=== PATIENT | male | born 1955 | race Caucasian/White ===

== ENCOUNTER → 2018-02-19 10:42 | Outpatient (POV) | payer MEDICARE, SELFPAY ==
[2018-02-19 11:03] VITALS: BP 200/93; PULSE 80; RESP 18; O2SAT 98
--- NOTE | 2018-02-19 13:18 | HMH.PMCON ---
Assessment and Plan (1) Degenerative joint disease (DJD) of lumbar spine Current visit: Yes Status: Chronic Qualifiers: Spinal osteoarthritis complication: with radiculopathy Qualified Code(s): M47.26 - Other spondylosis with radiculopathy, lumbar region Category: Medical Code(s): M47.816 - Spondylosis without myelopathy or radiculopathy, lumbar region - Assessment and plan all Dx Assessment and Plan for all problems:: Patient is not a narcotic candidate given his ORT score along with his history of prescription abuse. Patient and I discussed injection therapy we will start with lumbar epidural steroid injection at L4-L5. We then discussed utilizing injections to help with his neck pain. I will follow-up with the patient 2 weeks after his injection we will reassess his symptoms at that time. This note was dictated using voice recognition software and may contain errors or omissions HPI - Data of Consult Consult date: 02/19/18 Requesting Physician: Jenny Rios APRN Primary Care Provider: Julian Martinez - Consult Narrative Reason for consult: Back pain History of present illness: Mr. Ignacio is a 62 year old male who presents today for consultation in regards to his back pain. He rates his pain today a 6 out of 10. Patient states that he is mainly neck and low back pain going into his legs. He states all activity increases the pain while rest decreases his pain. Patient states he has numbness and tingling in all extremities. Patient's tried physical therapy with minimal relief. Patient does have an MRI showing some pathology. Patient has been on narcotics in the past and had difficulty getting off of them. He was also on methadone at some point. Patient's MRI shows degeneration in both cervical and the lumbar spine CC: Jenny Rios APRN [facility] History I have reviewed the patient's past medical history: Yes Medical History: Reports:: Diabetes Mellitus Type 2, Hypertension - *Social History Smoking Status: Never smoker Alcohol Intake: never Occupational Status: other Housing: house Household Members: spouse - Psychiatric History Expresses thoughts of harming self/others: None Suicide Plan Description: No Plan *Family Hx:: Unable to obtain Review of Systems - Review of Systems ROS General: no recent weight change, no fever, no sleep disturbances Respiratory: no cough, no shortness of air, no recurring pulmonary infections Cardiovascular/Peripheral Vascular: No chest pain, No palpitations, no edema, no shortness of breath. Gastrointestinal: no incontinence, normal bowel movements reported Genitourinary: no incontinence Musculoskeletal: Back pain, leg pain Psychiatric: normal mood/ affect, Neurological: [denies weakness in extremities], [denies balance issues] Objective Vital signs: Pulse Resp BP Pulse Ox 80 18 200/93 H 98 02/19/18 11:03 02/19/18 11:03 02/19/18 11:03 02/19/18 11:03 Narrative: Physical Exam General: Alert and oriented x3, no acute distress, pleasant and cooperative, on oxygen Lungs: Resps E/U, Symmetrical chest expansion, Eyes: PERRL Musculoskeletal: Flexion and extension of lumbar spine somewhat guarded secondary to pain, deep tendon reflexes normal, strength in upper and lower extremities [5/5], [abnormal gait noted] Neurological: speech clear, 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
--- NOTE | 2018-02-19 13:27 | P.CONS_ITS ---
Assessment and Plan (1) Degenerative joint disease (DJD) of lumbar spine Current visit: Yes Status: Chronic Qualifiers: Spinal osteoarthritis complication: with radiculopathy Qualified Code(s): M47.26 - Other spondylosis with radiculopathy, lumbar region Category: Medical Code(s): M47.816 - Spondylosis without myelopathy or radiculopathy, lumbar region - Assessment and plan all Dx Assessment and Plan for all problems:: Patient is not a narcotic candidate given his ORT score along with his history of prescription abuse. Patient and I discussed injection therapy we will start with lumbar epidural steroid injection at L4-L5. We then discussed utilizing injections to help with his neck pain. I will follow-up with the patient 2 weeks after his injection we will reassess his symptoms at that time. This note was dictated using voice recognition software and may contain errors or omissions HPI - Data of Consult Consult date: 02/19/18 Requesting Physician: Jenny Rios APRN Primary Care Provider: Julian Martinez - Consult Narrative Reason for consult: Back pain History of present illness: Mr. Ignacio is a 62 year old male who presents today for consultation in regards to his back pain. He rates his pain today a 6 out of 10. Patient states that he is mainly neck and low back pain going into his legs. He states all activity increases the pain while rest decreases his pain. Patient states he has numbness and tingling in all extremities. Patient's tried physical therapy with minimal relief. Patient does have an MRI showing some pathology. Patient has been on narcotics in the past and had difficulty getting off of them. He was also on methadone at some point. Patient's MRI shows degeneration in both cervical and the lumbar spine CC: Jenny Rios APRN [facility] History I have reviewed the patient's past medical history: Yes Medical History: Reports:: Diabetes Mellitus Type 2, Hypertension - *Social History Smoking Status: Never smoker Alcohol Intake: never Occupational Status: other Housing: house Household Members: spouse - Psychiatric History Expresses thoughts of harming self/others: None Suicide Plan Description: No Plan *Family Hx:: Unable to obtain Review of Systems - Review of Systems ROS General: no recent weight change, no fever, no sleep disturbances Respiratory: no cough, no shortness of air, no recurring pulmonary infections Cardiovascular/Peripheral Vascular: No chest pain, No palpitations, no edema, no shortness of breath. Gastrointestinal: no incontinence, normal bowel movements reported Genitourinary: no incontinence Musculoskeletal: Back pain, leg pain Psychiatric: normal mood/ affect, Neurological: [denies weakness in extremities], [denies balance issues] Objective Vital signs: Pulse Resp BP Pulse Ox 80 18 200/93 H 98 02/19/18 11:03 02/19/18 11:03 02/19/18 11:03 02/19/18 11:03 Narrative: Physical Exam General: Alert and oriented x3, no acute distress, pleasant and cooperative, on oxygen Lungs: Resps E/U, Symmetrical chest expansion, Eyes: PERRL Musculoskeletal: Flexion and extension of lumbar spine somewhat guarded secondary to pain, deep tendon reflexes normal, strength in upper and lower extremities [5/5], [abnormal gait noted] Neurological: speech clear, spa director equal, no gross sensory deficits
== END ==
PROVIDERS: PCP Family Medicine; Visit Provider Clinical Nurse Specialist Family Health
DX: M47.26 Other spondylosis with radiculopathy, lumbar region (principal)
CPT/HCPCS: 99202

== ENCOUNTER → 2018-03-12 11:25 | Outpatient (POV) | payer MEDICARE, SELFPAY ==
--- NOTE | 2018-03-12 11:45 | HMH.PAINSOAP ---
[facility] Pain Management SOAP Note Subjective:: Patient is a pleasant 62-year-old white male who presents today for follow-up after lumbar epidural steroid injection. Patient states he was improving after his injection until he had a recent fall. However his complaint today is his neck pain he states that he has neck pain radiating into both arms with numbness and tingling in his arms. Patient does have a cervical MRI showing degenerative changes. Patient is interested in having a cervical epidural injection. I do believe it would be beneficial for him. Patient is not a narcotic candidate due to his ORT score and history of prescription abuse. ROS General: no recent weight change, no fever, no sleep disturbances Respiratory: no cough, no shortness of air, no recurring pulmonary infections Cardiovascular/Peripheral Vascular: No chest pain, No palpitations, no edema, no shortness of breath. Gastrointestinal: no incontinence, normal bowel movements reported Genitourinary: no incontinence Musculoskeletal: Back pain, leg pain, neck pain, arm pain Psychiatric: normal mood/ affect Neurological: [denies weakness in extremities], [denies balance issues] Objective:: Physical Exam General: Alert and oriented x3, no acute distress, pleasant and cooperative, on O2 Lungs: Resps E/U, Symmetrical chest expansion, Eyes: PERRL Musculoskeletal: Flexion and extension of cervical and lumbar spine somewhat guarded secondary to pain, deep tendon reflexes normal, strength in upper and lower extremities [5/5], [abnormal gait noted] Neurological: speech clear, assembler radio and electrical equal, no gross sensory deficits Assessment:: 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 Patient's not on any anticoagulation therapy. Patient has done well with injections in the past. Patient is continuing a home stretching program. This note was dictated using voice recognition software and may contain errors or omissions
--- NOTE | 2018-03-12 11:48 | P.CONS_ITS ---
[facility] Pain Management SOAP Note Subjective:: Patient is a pleasant 62-year-old white male who presents today for follow-up after lumbar epidural steroid injection. Patient states he was improving after his injection until he had a recent fall. However his complaint today is his neck pain he states that he has neck pain radiating into both arms with numbness and tingling in his arms. Patient does have a cervical MRI showing degenerative changes. Patient is interested in having a cervical epidural injection. I do believe it would be beneficial for him. Patient is not a narcotic candidate due to his ORT score and history of prescription abuse. ROS General: no recent weight change, no fever, no sleep disturbances Respiratory: no cough, no shortness of air, no recurring pulmonary infections Cardiovascular/Peripheral Vascular: No chest pain, No palpitations, no edema, no shortness of breath. Gastrointestinal: no incontinence, normal bowel movements reported Genitourinary: no incontinence Musculoskeletal: Back pain, leg pain, neck pain, arm pain Psychiatric: normal mood/ affect Neurological: [denies weakness in extremities], [denies balance issues] Objective:: Physical Exam General: Alert and oriented x3, no acute distress, pleasant and cooperative, on O2 Lungs: Resps E/U, Symmetrical chest expansion, Eyes: PERRL Musculoskeletal: Flexion and extension of cervical and lumbar spine somewhat guarded secondary to pain, deep tendon reflexes normal, strength in upper and lower extremities [5/5], [abnormal gait noted] Neurological: speech clear, 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 Patient's not on any anticoagulation therapy. Patient has done well with injections in the past. Patient is continuing a home stretching program. This note was dictated using voice recognition software and may contain errors or omissions
[2018-03-12 11:58] VITALS: BP 150/90; PULSE 77; RESP 18; O2SAT 94; BMI 33.9
== END ==
PROVIDERS: PCP Family Medicine; Visit Provider Clinical Nurse Specialist Family Health
DX: M51.36 Other intervertebral disc degeneration, lumbar region (principal); M50.10 Cervical disc disorder with radiculopathy, unspecified cervical region; M48.00 Spinal stenosis, site unspecified
CPT/HCPCS: 99213

== ENCOUNTER → 2018-05-14 13:28 | Outpatient (POV) | payer MEDICARE, SELFPAY ==
[2018-05-14 13:42] VITALS: BP 168/77; PULSE 76; RESP 18; O2SAT 98; BMI 33.3
--- NOTE | 2018-05-14 13:57 | HMH.PAINSOAP ---
[facility] Pain Management SOAP Note Subjective:: Patient is a pleasant 63-year-old white male who presents today for follow-up after cervical epidural steroid vision. Patient states that he not had much pain relief however he has increased function in his left arm. Most of his pain today is in his left piriformis muscle. Patient also wants to discuss a neurostimulator. Patient is not a narcotic candidate due to history of prescription abuse. ROS General: no recent weight change, no fever, no sleep disturbances Respiratory: no cough, no shortness of air, no recurring pulmonary infections Cardiovascular/Peripheral Vascular: No chest pain, No palpitations, no edema, no shortness of breath. Gastrointestinal: no incontinence, normal bowel movements reported Genitourinary: no incontinence Musculoskeletal: Piriformis pain Psychiatric: normal mood/ affect Neurological: [denies weakness in extremities], [denies balance issues] Objective:: Physical Exam General: Alert and oriented x3, no acute distress, pleasant and cooperative, on O2 Lungs: Resps E/U, Symmetrical chest expansion, Eyes: PERRL Musculoskeletal: Flexion and extension of lumbar spine somewhat guarded secondary to pain, deep tendon reflexes normal, strength in upper and lower extremities [5/5], [abnormal gait noted] Neurological: speech clear, recruitment 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 Patient will take information on a neurostimulator. I will discussed this with him at his next follow-up visit. This note was dictated using voice recognition software and may contain errors or omissions
== END ==
PROVIDERS: PCP Family Medicine; Visit Provider Clinical Nurse Specialist Family Health
DX: G57.02 Lesion of sciatic nerve, left lower limb (principal); M79.18 Myalgia, other site; M50.30 Other cervical disc degeneration, unspecified cervical region; M51.36 Other intervertebral disc degeneration, lumbar region
CPT/HCPCS: 99213

== ENCOUNTER → 2019-12-26 11:42 | Outpatient (POV) | payer MEDICARE, SELFPAY | PROVIDERS: Visit Provider Audiologist | DX: Z00.00 Encounter for general adult medical examination without abnormal findings (principal) ==